=== PATIENT | female | born 1990 | race Caucasian/White ===

== ENCOUNTER → 2018-06-26 13:45 | Outpatient (CLI) | payer OTHER, SELFPAY ==
[2018-06-28 14:35] LABS: HPV Reflexed? NOT INDICATED
== END ==
PROVIDERS: Visit Provider Obstetrics & Gynecology
DX: Z12.4 Encounter for screening for malignant neoplasm of cervix (principal)
CPT/HCPCS: 88175; G0145

== ENCOUNTER → 2019-09-09 14:21 | Outpatient (CLI) | payer OTHER, SELFPAY ==
[2019-09-13 12:08] LABS: Age Gdln ACOG Testing 21-29 (.)
[2019-09-13 16:02] LABS: HPV Reflexed? NOT INDICATED
== END ==
PROVIDERS: Visit Provider Obstetrics & Gynecology
DX: Z12.4 Encounter for screening for malignant neoplasm of cervix (principal)
CPT/HCPCS: 88175; G0145

== ENCOUNTER → 2021-02-01 16:03 | Outpatient (CLI) | payer OTHER, SELFPAY ==
[2016-05-09 07:44] VITALS: BMI 26.6
[2021-02-08 12:00] LABS: HPV APTIMA, High Risk Negative
== END ==
PROVIDERS: Visit Provider Student in an Organized Health Care Education/Training Program
DX: Z12.4 Encounter for screening for malignant neoplasm of cervix (principal)
CPT/HCPCS: 87624; 88175; G0145